=== PATIENT | male | born 1970 | race Caucasian/White ===

== ENCOUNTER 2017-04-02 09:30 | Outpatient (CLI) | payer OTHER | END 2017-04-02 09:40 | disposition home or self-care (01) | LOC: RAD 09:30 | DX: M54.2 Cervicalgia (principal) ==

== ENCOUNTER 2018-03-10 23:46 | Emergency (ER) | payer OTHER ==
[~2018-03-10] VITALS: Ht 162.6 cm; Wt 97.5 kg
[2018-03-11] MEDS ORDERED: ALBUTEROL2.5 MG/3 M IH (06:07)
[2018-03-11] MEDS ORDERED: ZYNCOF 20-400120 ML PO (06:07)
[2018-03-11] MEDS ORDERED: SYMBICORT 16010.2 GM IH (06:07)
[2018-03-11] MEDS ORDERED: RANITIDINE HCL300 MG PO (06:07)
== END 2018-03-11 06:29 | disposition home or self-care (01) ==
LOC: ER 23:46
DX: J40 Bronchitis, not specified as acute or chronic (principal); R50.9 Fever, unspecified

== ENCOUNTER 2020-10-26 09:48 | Outpatient (CLI) | payer OTHER ==
[~2020-10-26 09:48] MED LIST: ALBUTEROL2.5 MG/3 M IH; RANITIDINE HCL300 MG PO; SYMBICORT 16010.2 GM IH; ZYNCOF 20-400120 ML PO
== END 2020-10-26 10:07 | disposition home or self-care (01) ==
LOC: TOM 09:48
PROVIDERS: ATTEND Internal Medicine Cardiovascular Disease
DX: K76.0 Fatty (change of) liver, not elsewhere classified (principal); Z13.89 Encounter for screening for other disorder

== ENCOUNTER 2021-03-24 07:37 | Outpatient (CLI) | payer OTHER | END 2021-03-24 07:43 | disposition home or self-care (01) | LOC: LAB 07:37 | PROVIDERS: ATTEND Internal Medicine Cardiovascular Disease | DX: R07.9 Chest pain, unspecified (principal) ==